=== PATIENT | female | born 1995 | race Caucasian/White ===

== ENCOUNTER 2019-02-17 15:12 | Emergency (ER) | payer SELFPAY ==
[~2019-02-17] VITALS: Ht 165.1 cm; Wt 90.7 kg
[2019-02-17 15:14] VITALS: BP 138/89
--- NOTE | 2019-02-17 15:24 | NUR ---
WAIT AT LOBBY.
--- NOTE | 2019-02-17 15:48 | NUR ---
PATIENT AMBULATED TO BED 8
--- NOTE | 2019-02-17 16:00 | NUR ---
BIB FRIEND W/ C/O CONSTANT LUQ/ LEFT FLANKD, MID BACK PAIN X 3 DAYS. DENIES TRAUMA OR DYSURIA. MED HX: DENIES
--- NOTE | 2019-02-17 18:16 | NUR ---
EVERETTE STAUFFER AT BEDSIDE EVALUATING AAX4 PT
[2019-02-17] MEDS ORDERED: KETOROLAC 60 MG/2 ML VIAL IM ONE (18:20)
--- NOTE | 2019-02-17 19:13 | NUR ---
REPORT GIVEN TO TROY LEI
[2019-02-17 19:20] VITALS: BP 114/69
--- NOTE | 2019-02-17 19:20 | NUR ---
Patient discharged with v/s stable. Written and verbal after care instructions given and explained. Patient alert, oriented and verbalized understanding of instructions. Ambulatory with steady gait. All questions addressed prior to discharge. ID band removed. Patient advised to follow up with PMD. Rx of Ibuprofen, Flexeril given. Patient educated on indication of medication including possible reaction and side effects. Opportunity to ask questions provided and answered.
== END 2019-02-17 19:20 | disposition home or self-care (01) ==
LOC: MED 15:12 → EDBD 15:12 → MED 19:20
DX: R07.89 Other chest pain (principal); M79.629 Pain in unspecified upper arm
CPT/HCPCS: 71045; 81002; 81025; 96372; 99283; J1885; Q0092